=== PATIENT | female | born 1945 | race Caucasian/White ===

== ENCOUNTER 2024-01-05 15:05 | Emergency (ER) | payer OTHER ==
[~2024-01-05] VITALS: Ht 162.6 cm; Wt 63.5 kg
[2024-01-05 15:05] VITALS: BP_SYST 107; PULSE 59; RESP 17; TEMP 97.6; O2SAT 98
[2024-01-05] MEDS ORDERED: GASTROGRAFIN 120 ML ONE (15:48)
== END 2024-01-05 16:58 | disposition short-term general hospital (02) ==
LOC: SED 15:05
DX: Z43.1 Encounter for attention to gastrostomy (principal); I10 Essential (primary) hypertension; F03.90 Unspecified dementia, unspecified severity, without behavioral disturbance, psychotic disturbance, mood disturbance, and anxiety; E07.9 Disorder of thyroid, unspecified; Z88.0 Allergy status to penicillin
CPT/HCPCS: 99284; 43762; 74240; Q9963